=== PATIENT | male | born 2000 | race Caucasian/White ===

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

== ENCOUNTER 2023-10-02 08:59 | Emergency (ER) | payer OTHER ==
[~2023-10-02] VITALS: Ht 180.3 cm; Wt 81.2 kg
[2023-10-02 09:17] VITALS: BP 119/52; PULSE 92; RESP 18; TEMP 98.9; O2SAT 98
[2023-10-02] MEDS ORDERED: SPAC1DEV10 MC (10:03)
[2023-10-02] MEDS ORDERED: ONDA-188 PO (10:03)
[2023-10-02 10:07] VITALS: BP 119/52; PULSE 92; RESP 18; TEMP 98.9; O2SAT 98
== END 2023-10-02 10:07 | disposition home or self-care (01) ==
LOC: MED 08:59
DX: J98.01 Acute bronchospasm (principal); R11.2 Nausea with vomiting, unspecified; J18.9 Pneumonia, unspecified organism; Z79.899 Other long term (current) drug therapy
CPT/HCPCS: 99283